=== PATIENT | female | born 1985 | race Two or more races ===

== ENCOUNTER 2018-12-24 14:23 | Outpatient (CLI) | payer OTHER ==
[2018-12-24] MEDS ORDERED: None per pt (15:03)
== END 2018-12-24 23:59 | disposition home or self-care (01) ==
LOC: STAR 14:23
PROVIDERS: ATTEND Obstetrics & Gynecology
DX: Z02.9 Encounter for administrative examinations, unspecified (principal)

== ENCOUNTER 2018-12-31 08:43 | Day surgery (SDC) | payer OTHER ==
[~2018-12-31] VITALS: Ht 165.1 cm; Wt 52.4 kg
[~2018-12-31 08:43] MED LIST: None per pt
[2018-12-31 09:52] VITALS: BP 101/70
[2018-12-31] MEDS ORDERED: LACTATED RINGERS 1,000 ML IV SCH (09:54)
[2018-12-31] MEDS ORDERED: MULTIVITAMIN GUMMIE PO (09:55)
[2018-12-31] MEDS ORDERED: SILVER NITRATE STICK TP ONE (09:58)
[2018-12-31] MEDS ORDERED: EPINEPHRINE 1 MG/ML, 1ML ONE (09:58)
[2018-12-31] MEDS ORDERED: BUPIVACAINE/PF 0.25% ONE (09:58)
[2018-12-31 10:16] LABS: HCG UR SG 1.016 (1.003-1.030)
[2018-12-31] MEDS ORDERED: FENTANYL PF 100 MCG/2ML ONE ×2 (11:45→12:58)
[2018-12-31] MEDS ORDERED: DEXAMETHASONE 4 MG/ML, 1ML ONE (11:46)
[2018-12-31] MEDS ORDERED: MIDAZOLAM 1 MG/ML, 2ML ONE (11:46)
[2018-12-31] MEDS ORDERED: PROPOFOL 10 MG/ML, 20ML ONE ×2 (11:52)
[2018-12-31] MEDS ORDERED: SUCCINYLCHOLINE 20 MG/ML, 10ML ONE (11:52)
[2018-12-31] MEDS ORDERED: ROCURONIUM 10MG/ML,5ML ONE (11:52)
[2018-12-31] MEDS ORDERED: ONDANSETRON 2MG/ML, 2ML ONE (12:05)
[2018-12-31] MEDS ORDERED: NEOSTIGMINE 1 MG/ML, 10ML ONE (12:28)
[2018-12-31] MEDS ORDERED: GLYCOPYRROLATE 0.4 MG/2 ML, 2ML ONE (12:28)
[2018-12-31] MEDS ORDERED: PROMETHAZINE 12.5 MG SUPP PR PRN (12:30)
[2018-12-31] MEDS ORDERED: OXYcodone 5 MG/5 ML ORAL.SOL UDC PO PRN (12:30)
[2018-12-31] MEDS ORDERED: HYDROmorphone 2 MG/ML, 1ML IVPush PRN (12:30)
[2018-12-31] MEDS ORDERED: MIDAZOLAM 1 MG/ML, 2ML IV PRN (12:30)
[2018-12-31] MEDS ORDERED: DIAZEPAM 5 MG/ML, 10ML VIAL IVPush PRN (12:30)
[2018-12-31] MEDS ORDERED: ALBUTEROL SULFATE 2.5 MG/3 ML NPPB PRN (12:30)
[2018-12-31] MEDS ORDERED: FENTANYL PF 100 MCG/2ML IV PRN (12:30)
[2018-12-31] MEDS ORDERED: ONDANSETRON 2MG/ML, 2ML IV PRN (12:30)
[2018-12-31] MEDS ORDERED: EPHEDRINE 50 MG/ML, 1ML IVPush PRN (12:30)
[2018-12-31] MEDS ORDERED: LABETALOL 5 MG/ML SYRINGE IV PRN (12:30)
[2018-12-31] MEDS ORDERED: MEPERIDINE/PF 25MG/0.5ML IVPush PRN (12:30)
[2018-12-31] MEDS ORDERED: MORPHINE SULFATE 4 MG/ML, 1ML IVPush PRN (12:30)
[2018-12-31] MEDS ORDERED: ONDANSETRON ODT 8 MG PO PRN (12:30)
[2018-12-31] MEDS ORDERED: hydrALAzine 20 MG/ML, 1ML IV PRN (12:30)
[2018-12-31] MEDS ORDERED: ACETAMINOPHEN 325 MG TABLET PO PRN (12:30)
[2018-12-31] MEDS ORDERED: PROMETHAZINE 25 MG/ML, 1ML IV PRN (12:30)
[2018-12-31] MEDS ORDERED: KETOROLAC 30 MG/1 ML ONE (12:58)
[2018-12-31] MEDS ORDERED: OXYcodone 5 MG/5 ML ORAL.SOL UDC ONE (12:58)
[2018-12-31] MEDS ORDERED: KETOROLAC 30 MG/1 ML IVPush PRN (13:00)
== END 2018-12-31 17:00 | disposition home or self-care (01) ==
LOC: OUT 08:43
PROVIDERS: ATTEND Obstetrics & Gynecology
DX: Z30.2 Encounter for sterilization (principal); Z64.1 Problems related to multiparity; Z79.899 Other long term (current) drug therapy
CPT/HCPCS: 58661; 81025; 88302; J0171; J0330; J1100; J1885; J2250; J2405; J2704; J2710; J3490; J7120; J3010